=== PATIENT | female | born 1975 ===

== ENCOUNTER 2016-10-04 15:48 | Emergency (ER) | payer OTHER ==
[2016-10-04 15:57] VITALS: PULSE 87; RESP 20; TEMP 99; O2SAT 99
--- NOTE | 2016-10-04 16:01 | ED PDOC ---
HPI: Skin/Bite Injury Time Seen by Provider: 10/04/16 15:53 Chief Complaint (Nursing): Abnormal Skin Integrity Chief Complaint (Provider): Laceration History Per: Patient Additional Complaint(s): pt. into ER c/o laceration to lt. hand 2nd digit with a mixer. (+) laceration noted to nailbed and under 2nd digit. bleeding controlled at present. last tetanus-5 months ago. Past Medical History Reviewed: Nursing Documentation, Vital Signs Vital Signs: Last Vital Signs Temp 99.0 F 10/04/16 15:53 Pulse 87 10/04/16 15:53 Resp 20 10/04/16 15:53 BP 131/83 10/04/16 17:12 Pulse Ox 99 10/04/16 16:01 - Medical History PMH: Hypercholesterolemia, Hyperlipidemia - Surgical History Surgical History: No Surg Hx - Family History Family History: States: No Known Family Hx - Living Arrangements Living Arrangements: With Family - Home Medications Home Medications: Ambulatory Orders Medication Instructions Recorded DiphenhydrAMINE [Benadryl] 50 mg PO Q6 #20 cap 07/16/15 Famotidine [Pepcid] 20 mg PO BID #20 tab 07/16/15 Prednisone 50 mg PO DAILY #5 tablet 07/16/15 Acetaminophen with Codeine 1 tab PO Q4 PRN #10 tab 10/04/16 [Tylenol with Codeine No. 3 300 mg-30 mg] Cephalexin [Keflex] 500 mg PO BID #14 capsule 10/04/16 - Allergies Allergies/Adverse Reactions: Allergies Allergy/AdvReac Type Severity Reaction Status Date / Time Iodinated Contrast Media - Allergy RASH Verified 10/04/16 15:52 Oral and [Iodinated Contrast Media - IV Dye] Review of Systems ROS Statement: Except As Marked, All Systems Reviewed And Found Negative Skin: Positive for: Other (laceration) Physical Exam - Reviewed Nursing Documentation Reviewed: Yes Vital Signs Reviewed: Yes - Physical Exam Appears: Positive for: Well, Non-toxic, No Acute Distress Head Exam: Positive for: ATRAUMATIC, NORMAL INSPECTION, NORMOCEPHALIC Skin: Positive for: Normal Color, Warm, DRY Eye Exam: Positive for: EOMI, Normal appearance, PERRL ENT: Positive for: Normal ENT Inspection Neck: Positive for: Normal, Painless ROM Cardiovascular/Chest: Positive for: Regular Rate, Rhythm Respiratory: Positive for: CNT, Normal Breath Sounds Gastrointestinal/Abdominal: Positive for: Normal Exam, Bowel Sounds, Soft Back: Positive for: Normal Inspection Extremity: Positive for: Normal ROM Neurologic/Psych: Positive for: Alert, Oriented Comments: left hand 2nd digit: 5 cm laceration noted to fingertip pulp, no active bleed, with 2 cm lac through nail plate - ECG O2 Sat by Pulse Oximetry: 99 Medical Decision Making Medical Decision Making: Laceration repaired by designer/writer. Wound car discussed. See procedure note. Disposition - Clinical Impression Clinical Impression: Laceration, Nail bed injury - Patient ED Disposition Is Patient to be Admitted: No - Disposition Disposition: Routine/Home Disposition Time: 18:43 Condition: STABLE Prescriptions: Acetaminophen with Codeine [Tylenol with Codeine No. 3 300 mg-30 mg] 1 tab PO Q4 PRN #10 tab PRN Reason: Pain Cephalexin [Keflex] 500 mg PO BID #14 capsule Instructions: Care For Your Absorbable Stitches (ED) Print Language: MALAWIAN - POA Present On Arrival: None Laceration - Laceration Repair 5 Wound Length (In cm): 5 Description Of Wound: Linear Wound Cleansed With: Betadine Anesthesia: Lidocaine 1% Wound Examination: Irrigated With Saline Wound Closure: Suture Suture Technique And Material Used: Interrupted, Vicryl (5-0) Wound Complexity: Simple (nail plate dermaboned in place)
[2016-10-04 17:13] VITALS: BP 131/83
== END 2016-10-04 17:12 | disposition home or self-care (01) ==
LOC: H.ER 15:48
DX: S61.201A Unspecified open wound of left index finger without damage to nail, initial encounter (principal); W29.0XXA Contact with powered kitchen appliance, initial encounter; Y92.000 Kitchen of unspecified non-institutional (private) residence as the place of occurrence of the external cause

== ENCOUNTER 2016-10-23 10:20 | Emergency (ER) | payer OTHER ==
[2016-10-23 10:31] VITALS: BMI 41.8
[2016-10-23 10:32] VITALS: BP 128/62; PULSE 75; RESP 18; TEMP 98.4; O2SAT 98
--- NOTE | 2016-10-23 11:39 | ED PDOC ---
HPI: Wound Care - HPI Time Seen by Provider: 10/23/16 10:40 Chief Complaint (Nursing): Wound Check Chief Complaint (Provider): Left index finger pain x 1 week, sutures 10/04/16 History Per: Patient History Of Present Illness: Pt reports one week of tenderness and redness to area around proximal sutures. No drainage. No fever/chills. Past Medical History Reviewed: Historical Data, Nursing Documentation, Vital Signs Vital Signs: Last Vital Signs Temp 98.4 F 10/23/16 10:31 Pulse 75 10/23/16 10:31 Resp 18 10/23/16 10:31 BP 128/62 10/23/16 10:31 Pulse Ox 98 10/23/16 10:31 - Medical History PMH: Hypercholesterolemia, Hyperlipidemia - Surgical History Surgical History: Appendectomy, Cholecystectomy - Family History Family History: States: No Known Family Hx - Living Arrangements Living Arrangements: With Family - Social History Current smoker - smoking cessation education provided: No Alcohol: None - Home Medications Home Medications: Ambulatory Orders Medication Instructions Recorded DiphenhydrAMINE [Benadryl] 50 mg PO Q6 #20 cap 07/16/15 Famotidine [Pepcid] 20 mg PO BID #20 tab 07/16/15 Prednisone 50 mg PO DAILY #5 tablet 07/16/15 Acetaminophen with Codeine 1 tab PO Q4 PRN #10 tab 10/04/16 [Tylenol with Codeine No. 3 300 mg-30 mg] Cephalexin [Keflex] 500 mg PO BID #14 capsule 10/04/16 Sulfamethoxazole/Trimethoprim 1 each PO BID #20 tablet 10/23/16 [Bactrim 400-80 mg Tablet] - Allergies Allergies/Adverse Reactions: Allergies Allergy/AdvReac Type Severity Reaction Status Date / Time Iodinated Contrast Media - Allergy RASH Verified 10/23/16 11:08 Oral and [Iodinated Contrast Media - IV Dye] Review of Systems ROS Statement: Except As Marked, All Systems Reviewed And Found Negative Skin: Positive for: Other Physical Exam - Reviewed Nursing Documentation Reviewed: Yes Vital Signs Reviewed: Yes - Physical Exam Appears: Positive for: Well, Non-toxic, No Acute Distress Head Exam: Positive for: ATRAUMATIC, NORMAL INSPECTION, NORMOCEPHALIC Skin: Positive for: Normal Color, Warm, DRY Eye Exam: Positive for: Normal appearance ENT: Positive for: Normal ENT Inspection Neck: Positive for: Normal, Painless ROM Respiratory: Negative for: Accessory Muscle Use, Respiratory Distress Back: Positive for: Normal Inspection Extremity: Positive for: Normal ROM, Tenderness (Distal left index finger with localized redness around proximal sutures) Neurologic/Psych: Positive for: Alert, Oriented - ECG O2 Sat by Pulse Oximetry: 98 Medical Decision Making Medical Decision Makin proximal sutures removed (absorbable) Discussed warm soaks with epison sailt. Disposition - Clinical Impression Clinical Impression: Encounter for re-check of laceration wound - Patient ED Disposition Is Patient to be Admitted: No - Disposition Disposition: Routine/Home Disposition Time: 11:37 Condition: GOOD Prescriptions: Sulfamethoxazole/Trimethoprim [Bactrim 400-80 mg Tablet] 1 each PO BID #20 tablet Instructions: Cellulitis (ED)
== END 2016-10-23 11:45 | disposition home or self-care (01) ==
LOC: H.ER 10:20
DX: Z48.02 Encounter for removal of sutures (principal); L03.012 Cellulitis of left finger; E78.00 Pure hypercholesterolemia, unspecified